=== PATIENT | female | born 1940 | race Caucasian/White ===

== ENCOUNTER 2016-09-23 04:37 | Emergency (ER) | payer MEDICARE, BC ==
[2016-09-23 05:46] LABS: BASOPHILS 0.4 % (0.0-2.0); EOSINOPHILS 2.8 % (0-7); HEMATOCRIT 38.1 % (36.0-48.0); HEMOGLOBIN 13.3 g/dL (12-16); IMMATURE GRANULOCYTES 0.3 % (0-5); LYMPHOCYTES 28.5 % (15-50); MCHC 34.9 g/dL (31.0-37.0); MCV 88.8 fL (80.0-100.0); MONOCYTES 12.4 % (2-11); NEUTROPHILS 55.6 % (40-80); PLATELET COUNT 258 10x3/uL (130-400); RBC 4.29 10x6/uL (4.00-5.40); RDW 14.2 % (11.5-14.5); WBC 7.2 10x3/uL (4.8-10.8)
[2016-09-23 06:24] LABS: ALBUMIN 3.9 g/dL (3.4-5.0); ALKALINE PHOSPHATASE 59 U/L (46-116); ALT (SGPT) 15 U/L (10-68); BILIRUBIN - TOTAL 0.33 mg/dL (0.2-1.3); CALC OSMOLALITY 283 mosm/kg (275-300); CARBON DIOXIDE 26.9 mmol/L (21.0-32.0); CHLORIDE - SERUM 104 mmol/L (98-107); CREATININE - SERUM 0.9 mg/dL (0.6-1.3); GLUCOSE 105 mg/dL (74-106); POTASSIUM - SERUM 3.5 mmol/L (3.5-5.1); PROTEIN - SERUM 7.2 g/dL (6.4-8.2); SODIUM 141 mmol/L (136-145); UREA NITROGEN 20 mg/dL (7-18); eGFR NON AFRICAN AMERICAN 64 mL/min (90-120)
[2016-09-23 06:35] LABS: CHOL - HDL RATIO 3.3 ratio (2.3-4.1); CHOLESTEROL, TOTAL 206 mg/dL (0-200); CKMB 1.2 U/L (0.0-3.6); CREATINE KINASE 64 UL (21-215); HDL CHOLESTEROL 63 mg/dL (32-96); LDL CHOLESTEROL 95 mg/dL (0-100); LDL-HDL RATIO 1.5 ratio (1.5-3.5); TRIGLYCERIDE 240 mg/dL (30-200)
[2016-09-23 06:36] LABS: TROPONIN-I < 0.017 ng/mL (0.000-0.060)
[2016-09-24] MEDS ORDERED: OMNICEF300 MG PO (15:40)
[2016-10-01] MEDS ORDERED: MACROBID100 MG PO (15:40)
== END 2016-09-23 09:30 | disposition home or self-care (01) ==
LOC: D.ER 04:37
PROVIDERS: Surgery
DX: J20.9 Acute bronchitis, unspecified (principal); I10 Essential (primary) hypertension; F17.200 Nicotine dependence, unspecified, uncomplicated

== ENCOUNTER 2016-10-02 15:12 | Inpatient (IN) | payer MEDICARE, BC ==
[~2016-10-02] VITALS: Ht 152.4 cm; Wt 49.7 kg
[~2016-10-02 15:12] MED LIST: MACROBID100 MG PO; OMNICEF300 MG PO
--- NOTE | 2016-10-02 15:34 | NUR ---
RECEIVED PATIENT TO ROOM 2105 VIA WHEELCHAIR FROM ADMISSIONS. PATIENT IS A DIRECT ADMIT FROM 'S OFFICE WITH COMPLAINTS OF BLADDER INFECTION. ALERT/ORIENTED. SITTING TO SIDE OF BED AT THIS TIME. NO IV ACCESS. RESP EVEN AND UNLABORED. NO DISTRESS.
[2016-10-02] MEDS ORDERED: COZAAR50 MG PO (15:38)
[2016-10-02] MEDS ORDERED: ACETAMINOPHEN500 M1 PO (15:42)
--- NOTE | 2016-10-02 15:59 | NUR ---
22 GAUGE IV PLACED X 1 STICK TO LEFT FOREARM BY THIS ACUTE CARE ASSISTANT. GOOD BLOOD RETURN, EASY FLUSH. ABLE TO PULL NEEDED BLOOD FROM IV FOR PHELBOTOMIST FOR STAT LABS. TAPED, DATED AND SECURED. PATIENT TOLERATED IV PLACEMENT WELL. NO DISTRESS. XRAY AT BEDSIDE FOR STAT RADIOGRAPHS AT THIS TIME.
[2016-10-02 16:11] LABS: BASOPHILS 0.2 % (0.0-2.0); EOSINOPHILS 1.7 % (0-7); HEMOGLOBIN 12.1 g/dL (12-16); IMMATURE GRANULOCYTES 0.2 % (0-5); LYMPHOCYTES 20.8 % (15-50); MCH 29.4 pg (26.0-34.0); MCHC 32.7 g/dL (31.0-37.0); MEAN PLATELET VOLUME 10.5 fL (7.4-10.4); MONOCYTES 11.9 % (2-11); NEUTROPHILS 65.2 % (40-80); PLATELET COUNT 244 10x3/uL (130-400); RBC 4.11 10x6/uL (4.00-5.40); RDW 13.5 % (11.5-14.5)
[2016-10-02 16:18] VITALS: BP 155/81
[2016-10-02 16:39] LABS: ANION GAP 17.1 mmol/L (8-16); BILIRUBIN - TOTAL 0.23 mg/dL (0.2-1.3); CALCIUM 9.2 mg/dL (8.5-10.1); CARBON DIOXIDE 24.8 mmol/L (21.0-32.0); CREATININE - SERUM 1.1 mg/dL (0.6-1.3); POTASSIUM - SERUM 3.9 mmol/L (3.5-5.1); PROTEIN - SERUM 6.8 g/dL (6.4-8.2)
[2016-10-02 17:54] VITALS: BP 155/81; BMI 20.5
[2016-10-02 20:00] VITALS: BP 139/85
--- NOTE | 2016-10-02 21:40 | NUR ---
PT AWAKE, ALERT, ORIENTED, REQUESTING PAIN MEDICATION FOR BACK PAIN AND LOWER ABDOMINAL PAIN. CURRENTLY THERE ARE NO MEDICATION ORDERS. WILL CONTACT COMPUTER ARCHITECT PHYSICIAN. WILL ADMINISTER IV ROCEPHIN ORDERED. CONTINUE TO MONITOR CLOSELY.
--- NOTE | 2016-10-02 21:54 | NUR ---
DR. ERVIN INDIVIDUAL SMALL GROUP INSTRUCTOR DID AUTHORIZE NEWS MEDS AND LAB ORDERS. ORDERS ENTERED. CONTINUE TO MONITOR PT CLOSELY.
--- NOTE | 2016-10-02 22:18 | NUR ---
ORDERED ROCEPHIN HELD R/T LISTED ALLERGY TO CEFDINIR. PT CANNOT RECALL THAT SHE IS ALLERGIC TO CEFDINIR OR WHAT HAPPENS WHEN SHE TAKES IT. CONTINUE TO MONITOR CLOSELY.
--- NOTE | 2016-10-02 23:57 | NUR ---
AWAITING BLOOD CULTURES TO BE DRAWN, THEN WILL START THE FLAGYL. PT DID TAKE PRN TYLENOL AND PYRIDIUM. CONTINUE TO MONITOR CLOSELY.
[2016-10-03] VITALS: BP 166/80
--- NOTE | 2016-10-03 02:56 | NUR ---
BLOOD CULTURES BEING DRAWN NOW. WILL ADMINISTER FIRST DOSE OF FLAGYL.
[2016-10-03 03:15] LABS: BASOPHILS 0.2 % (0.0-2.0); EOSINOPHILS 2.1 % (0-7); HEMATOCRIT 35.1 % (36.0-48.0); HEMOGLOBIN 11.5 g/dL (12-16); IMMATURE GRANULOCYTES 0.3 % (0-5); LYMPHOCYTES 25.1 % (15-50); MCH 29.2 pg (26.0-34.0); MCHC 32.8 g/dL (31.0-37.0); MCV 89.1 fL (80.0-100.0); MEAN PLATELET VOLUME 10.3 fL (7.4-10.4); MONOCYTES 12.5 % (2-11); NEUTROPHILS 59.8 % (40-80); PLATELET COUNT 241 10x3/uL (130-400); RBC 3.94 10x6/uL (4.00-5.40); RDW 13.1 % (11.5-14.5); WBC 10.1 10x3/uL (4.8-10.8)
[2016-10-03 03:24] LABS: ALBUMIN 3.4 g/dL (3.4-5.0); ANION GAP 12.5 mmol/L (8-16); BILIRUBIN - TOTAL 0.34 mg/dL (0.2-1.3); CALCIUM 8.3 mg/dL (8.5-10.1); CREATININE - SERUM 1.1 mg/dL (0.6-1.3); POTASSIUM - SERUM 3.5 mmol/L (3.5-5.1); PROTEIN - SERUM 6.2 g/dL (6.4-8.2)
[2016-10-03 04:00] VITALS: BP 140/80
--- NOTE | 2016-10-03 07:00 | NUR ---
PT WAS RECEIVED AT THE BEGINNING OF THIS SHIFT AWAKE AND ORIENTED X 3. NO VOICED COMPLAINTS OF THIS TIME. VITAL SIGNS WNL. LEFT FOREARM WITH NS GOING PER PUMP AT 75ML'S/HR. PT IS UP AD YVETTE. WILL BE MONITORING PT THROUGHOUT THIS SHIFT AND ASSISTING PRN WITH ADL'S. CALL LIGHT IS IN REACH.
[2016-10-03 08:00] VITALS: BP 136/81
--- NOTE | 2016-10-03 11:52 | NUR ---
RATIONALE FOR SCD'S EXPLAINED. REFUSED SCD'S
[2016-10-03 12:00] VITALS: BP 115/76
[2016-10-03 12:01] LABS: APPEARANCE CLEAR (CLEAR); COLOR YELLOW (YELLOW)
[2016-10-03 12:03] LABS: BACTERIA FEW /hpf (NONE SEEN); RED CELLS - URINE 0-5 /hpf (0-5)
[2016-10-03 13:54] VITALS: Ht 152.4 cm; Wt 49.7 kg
--- NOTE | 2016-10-03 15:27 | NUR ---
THIS PT. GOT TYLENOL 650MG AT 2PM FOR ABDOMINAL PAIN AND THEN AN ORDER FOR HYDROCODONE 5MG WAS GIVEN AT 2:30PM PER DR. CARRERA FOR A ONE TIME DOSE. MONITORING HER FOR ANY ADVERSE REACTIONS. CALL LIGHT IS IN REACH.
[2016-10-03 17:21] VITALS: BP 119/68
[2016-10-03 20:00] VITALS: BP 145/71
--- NOTE | 2016-10-03 23:24 | NUR ---
PT VOMITED, GIVEN PRN ZOFRAN. PT DENIES ANY OTHER NEEDS. PT IS IN NO ACUTE DISTRESS. CONTINUE TO MONITOR CLOSELY.
[2016-10-04] VITALS: BP 103/57
--- NOTE | 2016-10-04 00:49 | NUR ---
CHICKEN NOODLE SOUP (4 OZ) GIVEN TO PT AFTER ADMINISTERING HUMALOG 20 UNITS PER S/S.
[2016-10-04 04:00] VITALS: BP 148/66
--- NOTE | 2016-10-04 07:31 | NUR ---
RESTS IN BED. DR. CARRERA AT BS. IV PATENT. CALL LIGHT IN REACH. WILL CONT. PLAN OF CARE.
[2016-10-04 08:13] VITALS: BP 137/67
--- NOTE | 2016-10-04 08:55 | NUR ---
FULL BAG OF FLUIDS HANGING AND RUNNING - WILL HOLD BAG THAT IS DUE OF NS
[2016-10-04 11:38] VITALS: BP 133/70
[2016-10-04 15:20] VITALS: BP 142/69
--- NOTE | 2016-10-04 17:10 | NUR ---
PT AND DR. CARRERA NOTIFIED OF POSITIVE C-DIFF
--- NOTE | 2016-10-04 19:50 | NUR ---
RESUMED CARE OF PT, [id number], PT IS CONTACT ISO-C-DIFF, FAMILY IN ROOM, DENIES ANY NEEDS, BED IS LOW, SRX2, CALL LIGHT IN REACH, WILL CONTINUE TO MONITOR
[2016-10-04 20:00] VITALS: BP 149/68
[2016-10-05] VITALS: BP 122/63
[2016-10-05 04:00] VITALS: BP 124/63
--- NOTE | 2016-10-05 05:16 | NUR ---
DIRECTOR ADULT AT BEDSIDE TO OBTAIN VITALS, CALL LIGHT IN REACH. WILL CONTINUE WITH PLAN OF CARE.
[2016-10-05 08:31] VITALS: BP 140/67
[2016-10-05 09:05] LABS: BASOPHILS 0.4 % (0.0-2.0); EOSINOPHILS 2.1 % (0-7); HEMATOCRIT 32.9 % (36.0-48.0); HEMOGLOBIN 10.7 g/dL (12-16); IMMATURE GRANULOCYTES 0.1 % (0-5); LYMPHOCYTES 24.4 % (15-50); MCH 29.2 pg (26.0-34.0); MCHC 32.5 g/dL (31.0-37.0); MCV 89.6 fL (80.0-100.0); MEAN PLATELET VOLUME 10.4 fL (7.4-10.4); MONOCYTES 11.4 % (2-11); NEUTROPHILS 61.6 % (40-80); PLATELET COUNT 222 10x3/uL (130-400); RBC 3.67 10x6/uL (4.00-5.40); RDW 13.2 % (11.5-14.5); WBC 7.7 10x3/uL (4.8-10.8)
[2016-10-05 09:32] LABS: CREATININE - SERUM 0.8 mg/dL (0.6-1.3)
[2016-10-05 09:33] LABS: ALBUMIN 3.4 g/dL (3.4-5.0); BILIRUBIN - TOTAL 0.33 mg/dL (0.2-1.3); CALCIUM 7.9 mg/dL (8.5-10.1); CARBON DIOXIDE 25.3 mmol/L (21.0-32.0); PROTEIN - SERUM 6.4 g/dL (6.4-8.2)
[2016-10-05 09:52] LABS: ANION GAP 12.7 mmol/L (8-16)
[2016-10-05 12:47] VITALS: BP 146/67
--- NOTE | 2016-10-05 14:33 | NUR ---
RESTING QUIETLY IN BED. WILL CONTINUE TO MONITOR.
--- NOTE | 2016-10-05 15:56 | NUR ---
Patient Name: HASMUKH MERINO Admission Status: Elective Accout number: [id number] Admission Date: 10-02-2016 : 1940 Admission Diagnosis:URINARY TRACT INFECTION, SITE NOT SPECIFIED Attending: MICHELLE Current LOS: 3 Anticipated DC Date: Planned Disposition: Home Primary Insurance: MEDICARE A & B Discharge Planning Comments: * Is the patient Alert and Oriented? Yes 0 * How many steps to enter\exit or inside your home? 1 0 * PCP DR. CARRERA 0 * Pharmacy [facility] 0 * Preadmission Environment Home with Family 0 * ADLs Independent 0 * Equipment Nebulizer 0 * Other Equipment HEALTHCARE MEDICAL - MEDICAL EQUIPMENT PROVIDER 0 * List name and contact numbers for known caregivers / representatives who currently or will assist patient after discharge: MAHESH MERINO, DAUGHTER, 0 * Community resources currently utilized None 0 * Please name any agencies selected above. NONE 0 * Additional services required to return to the preadmission environment? No 0 * Can the patient safely return to the preadmission environment? Yes 0 * Has this patient been hospitalized within the prior 30 days at any hospital? No 0 CM MET WITH PT IN ROOM TO DISCUSS DISCHARGE PLANNING AND NEEDS. PT REPORTS LIVING AT HOME INDEPENDENTLY WITH HER SPOUSE AND ADULT DAUGHTER. PT HAS A NEBULIZER PROVIDED BY [facility] (SHE IS NOT FOR SURE). PT HAS NO OUTSIDE SERVICES ASSISTING IN THE HOME. CM DISCUSSED AVAILABILITY OF HOME HEALTH, REHAB SERVICES AND MEDICAL EQUIPMENT. PT DENIES DISCHARGE NEEDS, REPORTS HER DAUGHTER WILL PICK HER UP FOR DISCHARGE HOME. IMPORTANT MESSAGE FROM MEDICARE PROVIDED AND EXPLAINED. PT PLANS TO DISCHARGE HOME WITH FAMILY, NO ANTICIPATED DISCHARGE NEEDS. CM TO FOLLOW AND ASSIST NEEDED. Branch Banker: Harish Garcia
[2016-10-05 18:07] VITALS: BP 137/77
--- NOTE | 2016-10-05 19:44 | NUR ---
RECEIVED REPORT FROM DAY NURSE, PT WANTING TO GO TO ER TO SEE , DAY NURSE SAID OK,
--- NOTE | 2016-10-05 21:10 | NUR ---
PT STILL DOWN IN ER WITH , CALL TO CHECK ON HER
[2016-10-06] VITALS: BP 102/51
--- NOTE | 2016-10-06 01:23 | NUR ---
SLEEPING, SRX2, BED IS LOW, CALL LIGHT IN REACH
[2016-10-06 05:07] VITALS: BP 104/66
[2016-10-06 05:30] LABS: BASOPHILS 0.3 % (0.0-2.0); EOSINOPHILS 3.5 % (0-7); HEMOGLOBIN 10.3 g/dL (12-16); IMMATURE GRANULOCYTES 0.1 % (0-5); LYMPHOCYTES 24.3 % (15-50); MCH 28.7 pg (26.0-34.0); MCHC 32.2 g/dL (31.0-37.0); MCV 89.1 fL (80.0-100.0); MEAN PLATELET VOLUME 10.7 fL (7.4-10.4); MONOCYTES 13.6 % (2-11); NEUTROPHILS 58.2 % (40-80); PLATELET COUNT 211 10x3/uL (130-400); RBC 3.59 10x6/uL (4.00-5.40); WBC 7.4 10x3/uL (4.8-10.8)
[2016-10-06 05:46] LABS: ALKALINE PHOSPHATASE 46 U/L (46-116); CARBON DIOXIDE 23.7 mmol/L (21.0-32.0); CHLORIDE - SERUM 109 mmol/L (98-107); CREATININE - SERUM 0.7 mg/dL (0.6-1.3); POTASSIUM - SERUM 3.2 mmol/L (3.5-5.1); PROTEIN - SERUM 5.9 g/dL (6.4-8.2); SODIUM 142 mmol/L (136-145); UREA NITROGEN 8 mg/dL (7-18); eGFR NON AFRICAN AMERICAN 86 mL/min (90-120)
[2016-10-06 05:48] LABS: ALT (SGPT) 28 U/L (10-68); CALC OSMOLALITY 280 mosm/kg (275-300); GLUCOSE 95 mg/dL (74-106)
--- NOTE | 2016-10-06 07:44 | NUR ---
PT IN BED RESTING WITH EYES CLOSED. REMAINS ON CONTACT ISOLATION. IV TO LEFT FA WITH NS AT 75CC/HR. NO DISTRESS NOTED. SR UP X 2. C/L IN REACH. WILL MONITOR.
[2016-10-06 08:08] VITALS: BP 131/98
--- NOTE | 2016-10-06 10:22 | NUR ---
IV PATENT. NO NEEDS VOICED. CALL LIGHT IN REACH. WILL MONITOR.
[2016-10-06 11:57] VITALS: BP 145/72
--- NOTE | 2016-10-06 13:50 | NUR ---
PT FAMILY MEMBER CAME TO DESK FOUND ANTS IN ROOM ALL ALONG WINDOW SEAL. CALLED SUPERVISIOR AND TOLD HER. GOING TO MOVE PT TO ROOM 2108 SINCE UNSURE WHEN THEY WILL COME TO SPRAY FOR THE ANTS.
--- NOTE | 2016-10-06 14:10 | NUR ---
PT CALLED HER IV WAS LEAKING. LOOKED AT IV AND WAS INFILTRATED. SO REMOVED IV, CATH INTACT. ATTEMPTED TO PUT IV IN RIGHT FOREARM BUT WAS UNSUCCESSFUL. TOLD HER WILL SEND SOMEONE ELSE IN.
[2016-10-06 16:07] VITALS: BP 124/60
--- NOTE | 2016-10-06 19:35 | NUR ---
ASSESSMENT COMPLETE. A&O, DENIES PAIN OR NEEDS, BED LOW, CL IN REACH.
[2016-10-06 21:16] VITALS: BP 127/55
--- NOTE | 2016-10-06 23:10 | NUR ---
RESTING ON LEFT SIDE, RESPERATIONS EVEN, NO S/S DISTRESS NOTED.
[2016-10-07 00:30] VITALS: BP 140/67
[2016-10-07 04:30] VITALS: BP 149/73
[2016-10-07 05:05] LABS: BASOPHILS 0.2 % (0.0-2.0); EOSINOPHILS 3.2 % (0-7); HEMATOCRIT 34.2 % (36.0-48.0); HEMOGLOBIN 11.1 g/dL (12-16); IMMATURE GRANULOCYTES 0.1 % (0-5); LYMPHOCYTES 26.7 % (15-50); MCH 28.9 pg (26.0-34.0); MCHC 32.5 g/dL (31.0-37.0); MCV 89.1 fL (80.0-100.0); MEAN PLATELET VOLUME 10.3 fL (7.4-10.4); MONOCYTES 13.2 % (2-11); NEUTROPHILS 56.6 % (40-80); PLATELET COUNT 227 10x3/uL (130-400); RBC 3.84 10x6/uL (4.00-5.40); RDW 13.2 % (11.5-14.5); WBC 8.8 10x3/uL (4.8-10.8)
[2016-10-07 05:26] LABS: CALC OSMOLALITY 284 mosm/kg (275-300); CALCIUM 8.3 mg/dL (8.5-10.1); CARBON DIOXIDE 23.2 mmol/L (21.0-32.0); CHLORIDE - SERUM 110 mmol/L (98-107); CREATININE - SERUM 0.7 mg/dL (0.6-1.3); GLUCOSE 98 mg/dL (74-106); POTASSIUM - SERUM 3.4 mmol/L (3.5-5.1); SODIUM 144 mmol/L (136-145); UREA NITROGEN 6 mg/dL (7-18); eGFR NON AFRICAN AMERICAN 86 mL/min (90-120)
[2016-10-07 07:54] VITALS: BP 158/81
[2016-10-07 12:22] VITALS: BP 173/79
[2016-10-07] MEDS ORDERED: PROBIOTIC250 MG PO (12:25)
[2016-10-07] MEDS ORDERED: FLAGYL500 MG PO (12:25)
--- NOTE | 2016-10-10 08:02 | DS ---
PATIENT:HASMUKH MERINO :36 MEDICAL RECORD: [id number] DISCHARGE SUMMARY ADMISSION DATE: 10/02/16 DISCHARGE DATE: 10/07/16 DATE OF ADMISSION: 10/02/2016. DATE OF DISCHARGE: 10/07/2016. ADMISSION DIAGNOSES: Diarrhea, dehydration, acute urinary tract infection, possible sepsis. DISCHARGE DIAGNOSES: Clostridium difficile colitis, dehydration and urinary tract infection. CONSULTS: GI. HOSPITAL COURSE: The patient had an uneventful hospital course, was hydrated. His stools was positive for C. diff, was started on IV Flagyl, tolerating regular diet now, has been cleared for discharge by cardiology. He is feeling much better. He is discharged home in significantly improved condition. VITAL SIGNS ON DISCHARGE: Temperature 99, blood pressure 158/81, heart rate 70, respirations 18, O2 sats 95% on room air. He will follow up with Dr. Thakkar in the next 7-10 days. Labs reviewed and no significant abnormalities on discharge. See chart for further details. TRANSINT:[id number] Voice Confirmation ID: [id number] DOCUMENT ID: [id number] JHOAN ERVIN DO at 0802 CC: [id number] DICTATION DATE: 10/07/16 1230 OPENER TENDER: 10/07/16 1244 DIS IN 10/07/[id number] [place] [address]
== END 2016-10-07 16:31 | disposition home or self-care (01) | DRG 372 ==
LOC: D.M2 15:12
PROVIDERS: Internal Medicine Gastroenterology; ADMIT Family Medicine
DX: A04.7 Enterocolitis due to Clostridium difficile (principal); N39.0 Urinary tract infection, site not specified; E86.0 Dehydration; K58.9 Irritable bowel syndrome, unspecified

== ENCOUNTER → 2016-11-30 15:27 | Outpatient (CLI) | payer MEDICARE, BC ==
[2016-10-03 13:54] VITALS: BMI 20.5
[~2016-11-30 15:27] MED LIST changes: +ACETAMINOPHEN500 M1 PO; +COZAAR50 MG PO; +FLAGYL500 MG PO; +PROBIOTIC250 MG PO
[2016-11-30 15:57] LABS: BASOPHILS 0.2 % (0-2); HEMATOCRIT 42.2 % (36.0-48.0); HEMOGLOBIN 13.8 g/dL (12-16); IMMATURE GRANULOCYTES 0.2 % (0-5); MCH 29.9 pg (26.0-34.0); MCHC 32.7 g/dL (31.0-37.0); MCV 91.3 fL (80.0-100.0); MEAN PLATELET VOLUME 9.9 fL (7.4-10.4); MONOCYTES 10.2 % (2-11); NEUTROPHILS 58.4 % (40-80); RBC 4.62 10x6/uL (4.00-5.40); RDW 13.2 % (11.5-14.5); WBC 9.4 10x3/uL (4.8-10.8)
[2016-11-30 16:27] LABS: ALBUMIN 4.1 g/dL (3.4-5.0); ANION GAP 14.1 mmol/L (8-16); BILIRUBIN - TOTAL 0.24 mg/dL (0.2-1.3); CALCIUM 9.3 mg/dL (8.5-10.1); CREATININE - SERUM 0.8 mg/dL (0.6-1.3); POTASSIUM - SERUM 4.1 mmol/L (3.5-5.1); PROTEIN - SERUM 7.3 g/dL (6.4-8.2)
[2016-11-30 16:29] LABS: PLATELET COUNT 319 10x3/uL (130-400)
== END | disposition home or self-care (01) ==
LOC: D.LAB 11-28 11:30 → D.RAD 11-28 11:45 → D.LAB 15:27
PROVIDERS: Internal Medicine Gastroenterology
DX: K59.00 Constipation, unspecified (principal); R63.4 Abnormal weight loss

== ENCOUNTER → 2017-02-15 15:46 | Outpatient (CLI) | payer MEDICARE, BC ==
[2016-10-03 13:54] VITALS: BMI 20.5
== END | disposition home or self-care (01) ==
LOC: D.RAD 15:46
DX: J44.9 Chronic obstructive pulmonary disease, unspecified (principal)

== ENCOUNTER 2017-12-06 16:37 | Emergency (ER) | payer MEDICARE, BC ==
[2016-10-03 13:54] VITALS: BMI 20.5
[2017-12-06 17:55] LABS: BASOPHILS 0.2 % (0-2); EOSINOPHILS 1.7 % (0-7); HEMATOCRIT 43.4 % (36.0-48.0); IMMATURE GRANULOCYTES 0.3 % (0-5); MCHC 34.6 g/dL (31.0-37.0); MCV 86.8 fL (80.0-100.0); MEAN PLATELET VOLUME 9.9 fL (7.4-10.4); MONOCYTES 10.7 % (2-11); NEUTROPHILS 61.1 % (40-80); PLATELET COUNT 286 10x3/uL (130-400); RDW 13.1 % (11.5-14.5); WBC 12.4 10x3/uL (4.8-10.8)
[2017-12-06 18:14] LABS: ALBUMIN 3.6 g/dL (3.4-5.0); ALKALINE PHOSPHATASE 62 U/L (46-116); ALT (SGPT) 15 U/L (10-68); BILIRUBIN - TOTAL 0.31 mg/dL (0.2-1.3); CALC OSMOLALITY 269 mosm/kg (275-300); CARBON DIOXIDE 23.4 mmol/L (21.0-32.0); CHLORIDE - SERUM 100 mmol/L (98-107); CREATININE - SERUM 0.7 mg/dL (0.6-1.3); GLUCOSE 99 mg/dL (74-106); POTASSIUM - SERUM 3.8 mmol/L (3.5-5.1); SODIUM 135 mmol/L (136-145); UREA NITROGEN 13 mg/dL (7-18); eGFR NON AFRICAN AMERICAN 85 mL/min (90-120)
[2017-12-06 18:43] LABS: INR 0.89 (0.85-1.17); PROTIME 11.7 SECONDS (11.6-15.0)
[2017-12-06 18:47] LABS: MAGNESIUM - SERUM 1.9 mg/dL (1.8-2.4); TROPONIN-I 0.02 ng/mL (0.000-0.060)
[2017-12-06 19:21] LABS: APPEARANCE CLEAR (CLEAR); BILIRUBIN NEGATIVE (NEGATIVE); COLOR YELLOW (YELLOW); GLUCOSE NEGATIVE (NEGATIVE); KETONE NEGATIVE (NEGATIVE); NITRITE NEGATIVE (NEGATIVE); PROTEIN NEGATIVE (NEGATIVE); UROBILINOGEN NORMAL (NORMAL)
[2017-12-06 19:22] LABS: WHITE CELLS - URINE 0-5 /hpf (0-5)
[2017-12-06 19:23] LABS: BACTERIA FEW /hpf (NONE SEEN); EPITHELIAL CELLS 0-5 /hpf (0-5); RED CELLS - URINE RARE /hpf (0-5)
== END 2017-12-06 23:07 | disposition home or self-care (01) ==
LOC: D.ER 16:37
PROVIDERS: Emergency Medicine; Nurse Practitioner Family
DX: R55 Syncope and collapse (principal); R10.9 Unspecified abdominal pain; R19.7 Diarrhea, unspecified; Z87.19 Personal history of other diseases of the digestive system; I10 Essential (primary) hypertension

== ENCOUNTER → 2017-12-17 08:07 | Outpatient (CLI) | payer MEDICARE, BC ==
[2016-10-03 13:54] VITALS: BMI 20.5
== END | disposition home or self-care (01) ==
LOC: D.MRI 08:07
DX: R10.31 Right lower quadrant pain (principal)

== ENCOUNTER → 2018-01-10 08:02 | Outpatient (CLI) | payer MEDICARE, BC ==
[2016-10-03 13:54] VITALS: BMI 20.5
[~2018-01-10 08:02] MED LIST changes: +ADVAIR 250/501 DISK INH; +ELIQUIS2.5 MG PO; +PROAIR HFA8.5 GM INH; +ULTRAM50 MG PO; +ZANAFLEX4 MG PO
== END | disposition home or self-care (01) ==
LOC: D.SP 08:02
DX: M25.552 Pain in left hip (principal); M25.551 Pain in right hip; M16.0 Bilateral primary osteoarthritis of hip; Z01.812 Encounter for preprocedural laboratory examination

== ENCOUNTER → 2018-02-17 18:04 | Outpatient (CLI) | payer MEDICARE, BC ==
[2016-10-03 13:54] VITALS: BMI 20.5
== END | disposition home or self-care (01) ==
LOC: D.LABREF 18:04
DX: M25.551 Pain in right hip (principal); Z11.8 Encounter for screening for other infectious and parasitic diseases

== ENCOUNTER 2018-03-05 10:00 | Inpatient (IN) | payer MEDICARE, BC ==
[~2018-03-05] VITALS: Ht 154.9 cm; Wt 49.9 kg
--- NOTE | ~2018-03-05 | OP ---
PATIENT NAME: HASMUKH MERINO MEDICAL RECORD: [id number] :36 LOCATION:D.MS [id number] ADMISSION DATE:03/11/18 SURGEON: ALETA MANCILLA DO DATE OF OPERATION: 03/11/2018 PROCEDURE PERFORMED: Right total hip arthroplasty. PREOPERATIVE DIAGNOSIS: Right end-stage hip osteoarthritis. POSTOPERATIVE DIAGNOSIS: Right end-stage hip osteoarthritis. INDICATIONS: Ms. Merino is an 78-year-old female who presented to my office a couple months ago. She complained of bilateral hip pain with the right greater than the left. She has been dealing with this for some time and it has been affecting her activities of daily living. She was tired of it and lack of motion. X-rays were done showing severe osteoarthritis of both hips, so the right was worse than the left. She did try injections under fluoroscopy, which did not help. She failed all of the conservative management. She was aware of the risks and benefits of the procedure, the total hip, including fracture, bleeding, need for further surgery and infection. When she is aware of this, she consented to procedure of right total hip. She does have antibiotic sensitivity and was given vancomycin. Due to her recurrent C. diff, she said vancomycin is the only one she can take. SURGEON: Aleta Mancilla DO DESCRIPTION OF PROCEDURE: The patient received a block in the preoperative area by anesthesia, was taken to the operative suite, laid in supine position, sedated and then intubated, given a gram of vancomycin preoperatively. The patient was then prepared and put on the Deshler table. The right hip was prepped and draped in sterile fashion. Timeout was performed. Everyone was in agreeance with the correct side, site, patient and procedure. Once this was done, the procedure then began with an incision over the tensor fascia eleazar. Careful dissection was made down to the fascia and then this was incised and taken superiorly. The muscle of the tensor fascia eleazar was taken inferiorly, opening the interval to the rectus. The rectus fascia was then opened and the rectus was taken medially and the tensor fascia eleazar laterally. Careful dissection was then made down to the ascending branch of the lateral femoral circumflex, arteries of these were tied off and the Aquamantys bipolar device was used on them to ensure no bleeding. Then, the capsule was exposed. A capsulotomy was performed. Hohmanns were put inside the capsule. A neck cut was then done and the head was removed. We then reamed the acetabulum up to a 48 cup and the cup was put into place. This was done under fluoroscopy. Then, the femur was exposed, first the canal finder, then the cookie cutter and then the 4 broach with the smallest broach, and this fit due to her small size. Then trialled, seemed to be a little long, recut the neck and then put the 4 stem back down and I used a -6, and this cut close to the appropriate length compared to the other side. Once this was done, the actual implant was put in, a 4 stem with a 28 head and a 38 mm bearing size dual mobility head was put on. Hip was reduced. The wound was then thoroughly irrigated. Surgicel beads were placed into the capsule. Capsule was closed and then a tensor fascia eleazar fascia was closed with #1 Vicryl, first with [id number] and in a running fashion. Skin was closed with inverted interrupted stitches, 2-0 Vicryl, 4-0 Monocryl ran on the skin and a Prineo Dermabond grid was put on the skin for closure. A Telfa and Tegaderm were then placed on the hip. OPERATIVE REPORT [id number] HASMUKH MERINO BLOOD LOSS: Approximately 150 mL. COMPLICATIONS: None. TRANSINT:[id number] Voice Confirmation ID: [id number] DOCUMENT ID: [id number] ALETA MANCILLA DO at 1337 CC: [id number] DICTATION DATE: 03/11/18939 ASSOCIATE PROFESSOR OF FORESTRY: 03/11/18 1033 [facility] IN [facility] [address] [id number]
[~2018-03-05 10:00] MED LIST changes: -ADVAIR 250/501 DISK INH; -ELIQUIS2.5 MG PO; -PROAIR HFA8.5 GM INH; -ULTRAM50 MG PO; -ZANAFLEX4 MG PO
[2018-03-05] MEDS ORDERED: ADVAIR 250/501 DISK INH (10:55)
[2018-03-05] MEDS ORDERED: PROAIR HFA8.5 GM INH (10:56)
[2018-03-05] MEDS ORDERED: ZANAFLEX4 MG PO (10:56)
[2018-03-05 11:54] LABS: ANION GAP 11.6 mmol/L (8-16); CALCIUM 8.7 mg/dL (8.5-10.1); CARBON DIOXIDE 28.6 mmol/L (21.0-32.0); CREATININE - SERUM 0.8 mg/dL (0.6-1.3); POTASSIUM - SERUM 4.2 mmol/L (3.5-5.1)
[2018-03-05 12:06] LABS: BASOPHILS 0.3 % (0-2); EOSINOPHILS 1.6 % (0-7); HEMATOCRIT 40.3 % (36.0-48.0); HEMOGLOBIN 13.6 g/dL (12-16); IMMATURE GRANULOCYTES 0.2 % (0-5); LYMPHOCYTES 25.1 % (15-50); MCH 29.5 pg (26.0-34.0); MCHC 33.7 g/dL (31.0-37.0); MCV 87.4 fL (80.0-100.0); MEAN PLATELET VOLUME 9.7 fL (7.4-10.4); MONOCYTES 8.8 % (2-11); PLATELET COUNT 289 10x3/uL (130-400); RBC 4.61 10x6/uL (4.00-5.40); RDW 15.4 % (11.5-14.5)
[2018-03-05 12:14] LABS: APPEARANCE CLEAR (CLEAR); BILIRUBIN NEGATIVE (NEGATIVE); COLOR YELLOW (YELLOW); GLUCOSE NEGATIVE (NEGATIVE); KETONE NEGATIVE (NEGATIVE); NITRITE NEGATIVE (NEGATIVE); PROTEIN NEGATIVE (NEGATIVE); UROBILINOGEN NORMAL (NORMAL)
[2018-03-05 12:38] LABS: APTT 27.5 SECONDS (22.8-39.4); INR 0.85 (0.85-1.17); PROTIME 11.2 SECONDS (11.6-15.0)
[2018-03-11] VITALS (10 sets, daily range): BP systolic 93–142; BP diastolic 50–72; BMI 14.9; BMI 15.3
[2018-03-12 04:35] LABS: HEMATOCRIT 30.8 % (36.0-48.0); MCH 29.1 pg (26.0-34.0); MCHC 32.5 g/dL (31.0-37.0); MCV 89.5 fL (80.0-100.0); MEAN PLATELET VOLUME 9.8 fL (7.4-10.4); RBC 3.44 10x6/uL (4.00-5.40); RDW 14.8 % (11.5-14.5); WBC 11.4 10x3/uL (4.8-10.8)
[2018-03-12 04:51] VITALS: BP 103/64
[2018-03-12 08:50] VITALS: BP 108/41
[2018-03-12 12:36] VITALS: Ht 154.9 cm; Wt 49.9 kg
[2018-03-12 12:51] VITALS: BP 122/56
[2018-03-12 17:36] VITALS: BP 124/61
[2018-03-12 20:00] VITALS: BP 138/63
[2018-03-13 04:33] LABS: BASOPHILS 0.1 % (0-2); EOSINOPHILS 1.6 % (0-7); HEMATOCRIT 29.9 % (36.0-48.0); HEMOGLOBIN 9.9 g/dL (12-16); IMMATURE GRANULOCYTES 0.2 % (0-5); LYMPHOCYTES 17.9 % (15-50); MCH 29.5 pg (26.0-34.0); MCHC 33.1 g/dL (31.0-37.0); MONOCYTES 10.2 % (2-11); PLATELET COUNT 246 10x3/uL (130-400); RBC 3.36 10x6/uL (4.00-5.40); RDW 14.8 % (11.5-14.5); WBC 9.8 10x3/uL (4.8-10.8)
[2018-03-13 04:49] LABS: ALBUMIN 2.7 g/dL (3.4-5.0); ALKALINE PHOSPHATASE 50 U/L (46-116); ALT (SGPT) 23 U/L (10-68); BILIRUBIN - TOTAL 0.62 mg/dL (0.2-1.3); CALC OSMOLALITY 271 mosm/kg (275-300); CALCIUM 7.6 mg/dL (8.5-10.1); CARBON DIOXIDE 24.9 mmol/L (21.0-32.0); CHLORIDE - SERUM 104 mmol/L (98-107); CREATININE - SERUM 0.7 mg/dL (0.6-1.3); GLUCOSE 103 mg/dL (74-106); POTASSIUM - SERUM 3.8 mmol/L (3.5-5.1); PROTEIN - SERUM 5.7 g/dL (6.4-8.2); SODIUM 137 mmol/L (136-145); UREA NITROGEN 6 mg/dL (7-18); eGFR NON AFRICAN AMERICAN 85 mL/min (90-120)
[2018-03-13 04:55] VITALS: BP 131/74
[2018-03-13 09:03] VITALS: BP 145/71
[2018-03-13] MEDS ORDERED: ELIQUIS2.5 MG PO (12:32)
[2018-03-13] MEDS ORDERED: ULTRAM50 MG PO (12:32)
[2018-03-13 13:16] VITALS: BP 125/68
== END 2018-03-13 14:42 | disposition home or self-care (01) | DRG 470 ==
LOC: D.SDCHOLD 03-11 05:25 → D.MS 03-11 10:37 → D.SDCHOLD 03-11 11:50 → D.MS 03-13 14:42
PROVIDERS: Anesthesiology; Family Medicine; Orthopaedic Surgery
PROC: 0SR90JZ Replacement of Right Hip Joint with Synthetic Substitute, Open Approach (ICD-10-PCS; principal; 2018-03-11 07:30)
DX: M16.11 Unilateral primary osteoarthritis, right hip (principal); I10 Essential (primary) hypertension; R05 Cough; F17.210 Nicotine dependence, cigarettes, uncomplicated

== ENCOUNTER 2018-04-04 15:27 | Emergency (ER) | payer MEDICARE, BC ==
[~2018-04-04] VITALS: Ht 154.9 cm; Wt 48.2 kg
[~2018-04-04 15:27] MED LIST changes: +ADVAIR 250/501 DISK INH; +ELIQUIS2.5 MG PO; +PROAIR HFA8.5 GM INH; +ULTRAM50 MG PO; +ZANAFLEX4 MG PO
[2018-04-04 15:34] VITALS: Ht 154.9 cm; Wt 48.2 kg
[2018-04-04] MEDS ORDERED: TYLENOL W/CODEI1 TAB PO (15:37)
[2018-04-04 18:09] VITALS: BP 146/68
== END 2018-04-04 18:10 | disposition home or self-care (01) ==
LOC: D.ER 15:27
DX: M25.551 Pain in right hip (principal); W18.30XA Fall on same level, unspecified, initial encounter; Y93.89 Activity, other specified; Y92.019 Unspecified place in single-family (private) house as the place of occurrence of the external cause; I10 Essential (primary) hypertension; F17.200 Nicotine dependence, unspecified, uncomplicated

== ENCOUNTER → 2018-06-19 15:56 | Outpatient (CLI) | payer MEDICARE, BC ==
[~2018-06-19 15:56] MED LIST changes: +TYLENOL W/CODEI1 TAB PO
== END | disposition home or self-care (01) ==
LOC: D.MRI 15:56
DX: M54.16 Radiculopathy, lumbar region (principal)

== ENCOUNTER → 2018-10-13 09:04 | Outpatient (CLI) | payer MEDICARE, BC | END | disposition home or self-care (01) | LOC: D.CT 09:04 | PROVIDERS: ATTEND Family Medicine | DX: R91.8 Other nonspecific abnormal finding of lung field (principal) ==

== ENCOUNTER 2019-01-28 13:02 | Inpatient (IN) | payer MEDICARE, BC ==
[~2019-01-28] VITALS: Ht 154.9 cm; Wt 49.9 kg
[2019-01-28 13:12] VITALS: BP 135/78
[2019-01-28] MEDS ORDERED: ACETAMINOPHEN500 M1 PO (13:15)
[2019-01-28 14:00] VITALS: BP 130/69
[2019-01-28 14:14] LABS: HEMATOCRIT 37.7 % (36.0-48.0); HEMOGLOBIN 12.8 g/dL (12-16); LYMPHOCYTES 14.2 % (15-50); MCH 29.4 pg (26.0-34.0); MCV 86.7 fL (80.0-100.0); MEAN PLATELET VOLUME 9.7 fL (7.4-10.4); NEUTROPHILS 72.5 % (40-80); PLATELET COUNT 224 10x3/uL (130-400); RBC 4.35 10x6/uL (4.00-5.40); RDW 13.5 % (11.5-14.5)
[2019-01-28 14:33] LABS: ALBUMIN 3.9 g/dL (3.4-5.0); ALKALINE PHOSPHATASE 74 U/L (46-116); ALT (SGPT) 13 U/L (10-68); BILIRUBIN - TOTAL 0.84 mg/dL (0.2-1.3); CALC OSMOLALITY 273 mosm/kg (275-300); CARBON DIOXIDE 25.6 mmol/L (21.0-32.0); CHLORIDE - SERUM 101 mmol/L (98-107); CREATINE KINASE 78 UL (21-215); CREATININE - SERUM 0.8 mg/dL (0.6-1.3); GLUCOSE 124 mg/dL (74-106); LIPASE 233 U/L (73-393); MAGNESIUM - SERUM 1.8 mg/dL (1.8-2.4); POTASSIUM - SERUM 3.6 mmol/L (3.5-5.1); PRO BNP 648 pg/mL (0-450); PROTEIN - SERUM 7.1 g/dL (6.4-8.2); SODIUM 137 mmol/L (136-145); THYROID STIMULATING HORMONE 1.44 uIU/mL (0.36-3.74); UREA NITROGEN 10 mg/dL (7-18); eGFR NON AFRICAN AMERICAN 73 mL/min (90-120)
[2019-01-28 14:58] LABS: APPEARANCE CLEAR (CLEAR); BILIRUBIN NEGATIVE (NEGATIVE); COLOR YELLOW (YELLOW); GLUCOSE NEGATIVE (NEGATIVE); KETONE NEGATIVE (NEGATIVE); NITRITE NEGATIVE (NEGATIVE); PROTEIN NEGATIVE (NEGATIVE); UROBILINOGEN NORMAL (NORMAL)
[2019-01-28 15:00] VITALS: BP 142/76
[2019-01-28 15:03] LABS: TROPONIN-I < 0.017 ng/mL (0.000-0.060)
[2019-01-28] MEDS ORDERED: ALBUTEROL2.5 MG/3 M INH (16:04)
[2019-01-28 17:23] VITALS: BMI 20.8
[2019-01-28 17:42] LABS: CKMB 0.5 U/L (0.0-3.6); CREATINE KINASE 86 UL (21-215); TROPONIN-I 0.051 ng/mL (0.000-0.060)
[2019-01-28 20:00] VITALS: BP 122/71
[2019-01-28 23:39] LABS: CKMB 1.2 U/L (0.0-3.6); CREATINE KINASE 4 UL (21-215); TROPONIN-I < 0.017 ng/mL (0.000-0.060)
[2019-01-29] VITALS: BP 112/76
[2019-01-29 04:00] VITALS: BP 107/73
[2019-01-29 05:27] LABS: BASOPHILS 0.1 % (0-2); EOSINOPHILS 0 % (0-7); HEMATOCRIT 38.3 % (36.0-48.0); HEMOGLOBIN 12.8 g/dL (12-16); IMMATURE GRANULOCYTES 0.2 % (0-5); LYMPHOCYTES 12.8 % (15-50); MCHC 33.4 g/dL (31.0-37.0); MCV 86.8 fL (80.0-100.0); MEAN PLATELET VOLUME 10.7 fL (7.4-10.4); MONOCYTES 3.8 % (2-11); NEUTROPHILS 83.1 % (40-80); PLATELET COUNT 234 10x3/uL (130-400); RBC 4.41 10x6/uL (4.00-5.40); RDW 13.4 % (11.5-14.5); WBC 10.7 10x3/uL (4.8-10.8)
[2019-01-29 05:47] LABS: ALBUMIN 3.6 g/dL (3.4-5.0); ALKALINE PHOSPHATASE 68 U/L (46-116); ALT (SGPT) 13 U/L (10-68); BILIRUBIN - TOTAL 0.77 mg/dL (0.2-1.3); CALCIUM 8.6 mg/dL (8.5-10.1); CARBON DIOXIDE 22.7 mmol/L (21.0-32.0); CHLORIDE - SERUM 101 mmol/L (98-107); CKMB 1.5 U/L (0.0-3.6); CREATINE KINASE 116 UL (21-215); GLUCOSE 151 mg/dL (74-106); PROTEIN - SERUM 6.8 g/dL (6.4-8.2); SODIUM 137 mmol/L (136-145); TROPONIN-I < 0.017 ng/mL (0.000-0.060)
[2019-01-29 05:52] LABS: CALC OSMOLALITY 279 mosm/kg (275-300); CREATININE - SERUM 1.1 mg/dL (0.6-1.3); POTASSIUM - SERUM 4.7 mmol/L (3.5-5.1); UREA NITROGEN 21 mg/dL (7-18); eGFR NON AFRICAN AMERICAN 51 mL/min (90-120)
[2019-01-29 11:40] VITALS: BP 105/47
[2019-01-29 14:18] VITALS: Ht 154.9 cm; Wt 49.9 kg
[2019-01-29 15:24] VITALS: BP 116/55
[2019-01-29 20:00] VITALS: BP 114/49
[2019-01-30 04:00] VITALS: BP 106/62
[2019-01-30 05:36] LABS: BASOPHILS 0 % (0-2); EOSINOPHILS 0 % (0-7); HEMATOCRIT 34.1 % (36.0-48.0); HEMOGLOBIN 11.4 g/dL (12-16); IMMATURE GRANULOCYTES 0.3 % (0-5); LYMPHOCYTES 6.1 % (15-50); MCH 28.6 pg (26.0-34.0); MCHC 33.4 g/dL (31.0-37.0); MCV 85.5 fL (80.0-100.0); MEAN PLATELET VOLUME 10.5 fL (7.4-10.4); MONOCYTES 7.7 % (2-11); NEUTROPHILS 85.9 % (40-80); PLATELET COUNT 241 10x3/uL (130-400); RBC 3.99 10x6/uL (4.00-5.40); RDW 13.5 % (11.5-14.5)
[2019-01-30 05:40] LABS: WBC 15.7 10x3/uL (4.8-10.8)
[2019-01-30 05:53] LABS: ALBUMIN 3.1 g/dL (3.4-5.0); ANION GAP 13.2 mmol/L (8-16); BILIRUBIN - TOTAL 0.43 mg/dL (0.2-1.3); CALCIUM 8.4 mg/dL (8.5-10.1); CARBON DIOXIDE 25.4 mmol/L (21.0-32.0); CREATININE - SERUM 0.9 mg/dL (0.6-1.3); POTASSIUM - SERUM 4.6 mmol/L (3.5-5.1); PROTEIN - SERUM 6.4 g/dL (6.4-8.2)
[2019-01-30 12:30] VITALS: BP 130/70
--- NOTE | 2019-01-30 13:03 | MORECARE ---
CASE MANAGEMENT DISCHARGE SUMMARY PATIENT: HASMUKH MERINO AMANDA UNIT: [id number] ADM DATE: 01/28/19 AGE: 78 : 38 SEX: F ROOM/BED: D.7002 AUTHOR: NATALIE VYAS PHYSICIAN: REFERRING PHYSICIAN: LUCIO CRAMER MD DATE OF SERVICE: 01/30/19 Discharge Plan Patient Name: HASMUKH MERINO Facility: [facility]:[place] : 1940 Planned Disposition: Home Anticipated Discharge Date: 01/31/19 Discharge Date: Expected LOS: 3 Initial Reviewer: [email or web address] Initial Review Date: 01/30/2019 Generated: 01/30/19 2:03 pm DCPIA - Discharge Planning Initial Assessment Updated by [email or web address]: Harish Garcia on 01/30/19 1:02 pm * Is the patient Alert and Oriented? Yes * How many steps to enter\exit or inside your home? * PCP DR. CARRERA * Pharmacy [facility] * Preadmission Environment Home with Family * ADLs Independent * Equipment Bedside Commode Nebulizer Rolling Walker * Other Equipment NONE * List name and contact numbers for known caregivers / representatives who currently or will assist patient after discharge: MAHESH MERINO, DTR, * Verbal permission to speak to the caregivers and representatives has been obtained from the patient. N/A * Community resources currently utilized None * Please name any agencies selected above. NONE * Additional services required to return to the preadmission environment? No * Can the patient safely return to the preadmission environment? Yes * Has this patient been hospitalized within the prior 30 days at any hospital? No Coverage Notice Reviewer: [email or web address] - Harish Garcia Notice Issued Date-Time: 01/30/2019 12:50 Notice Type: IM Discharge Notice Notice Delivered To: Patient Relationship to Patient: Dwarf Tree Grower Name: Delivery Method: HAND - Hand Delivered Fanny Days: Prior Verbal Notification: Recipient Understood Notice: Yes Recipient Signature: Yes Med Rec Note Co-signed by Attending: Coverage Notice Comment: Patient Name: HASMUKH MERINO Page [phone] at 1303 All edits/amendments must be made on the electronic document DICTATION DATE: 01/30/19 1303 PHYSICIAN RELATIONS MANAGER: CALEB 01/30/19 1303 RPT#: [id number] DC DATE: STATUS: ADM IN [facility] [address] [place] [address] END OF REPORT
--- NOTE | 2019-01-30 13:11 | MORECARE ---
CASE MANAGEMENT DISCHARGE SUMMARY PATIENT: HASMUKH MERINO UNIT: [id number] ADM DATE: 01/28/19 AGE: 78 : 38 SEX: F ROOM/BED: D.9694 AUTHOR: LILLIAM,DOC PHYSICIAN: REFERRING PHYSICIAN: LUCIO CRAMER MD DATE OF SERVICE: 01/30/19 Discharge Plan Patient Name: HASMUKH MERINO Facility: [facility]:[place] : 1940 Planned Disposition: Home Anticipated Discharge Date: 01/31/19 Discharge Date: Expected LOS: 3 Initial Reviewer: [email or web address] Initial Review Date: 01/30/2019 Generated: 01/30/19 2:11 pm Comments DCP- Discharge Planning Updated by [email or web address]: Harish Garcia on 01/30/19 12:[address] Patient Name: HASMUKH MERINO Admission Status: ER Accout number: [id number] Admission Date: 01-28-2019 : 1940 Admission Diagnosis: Attending: LUCIO KINSEY Current LOS: 2 Anticipated DC Date: 01-31-2019 Planned Disposition: Home Primary Insurance: MEDICARE A & B Discharge Planning Comments: CM RECEIVED ORDER FOR DISCHARGE PLANNING. CM MET WITH PT IN ROOM TO DISCUSS DISCHARGE PLANNING AND NEEDS. PT REPORTS LIVING AT HOME INDEPENDENTLY WITH HER DAUGHTER. PT HAS ROLLING WALKER, BEDSIDE COMMODE AND NEBULIZER WITH NO MEDICAL EQUIPMENT PROVIDER PREFERENCE. PT HAS NO OUTSIDE SERVICES ASSISTING IN THE HOME. CM DISCUSSED AVAILABILITY OF HOME HEALTH, REHAB SERVICES AND MEDICAL EQUIPMENT. PT DENIES DISCHARGE NEEDS, REPORTS HER DAUGHTER WILL PICK HER UP FOR DISCHARGE HOME. IMPORTANT MESSAGE FROM MEDICARE PROVIDED AND EXPLAINED. CM REVIEWED THERAPY NOTES IN ROOM WITH PT, ENCOURAGED PT TO CONSIDER REHAB OR AT LEAST HOME HEALTH. PT DECLINED BOTH AND REPORTS SHE WANTS TO GET HOME AND SEE HOW SHE DOES FIRST. CM EXPLAINED HOW TO CONTACT PRIMARY DOCTOR FROM HOME TO REQUEST HOME HEALTH, PT REPORTS UNDERSTANDING. PT'S FRIEND WHO ARRIVED ENCOURAGED PT TO REQUEST A WALKER WITH 4 WHEELS AND BRAKES. PT REPORTS HAVING ROLLING WALKER AT HOME BUT IT DOES NOT HAVE A SEAT AND DOES NOT WANT CM TO ORDER A NEW WALKER FOR HER. PT STATES THAT SHE WILL DISCUSS THIS WITH HER PRIMARY CARE DOCTOR AFTER SHE GETS HOME IF SHE FEELS THAT HER CURRENT WALKER IS NOT ENOUGH. CM LEFT PT WITH CM CONTACT INFORMATION. PT PLANS TO DISCHARGE HOME WITH FAMILY, DENIES DISCHARGE NEEDS. DAUGHTER TO TRANSPORT HOME AT DISCHARGE. CM TO FOLLOW AND ASSIST IF NEEDED. Oxygen Furnace Operator: Harish Garcia DCPIA - Discharge Planning Initial Assessment Updated by [email or web address]: Harish Garcia on 01/30/19 1:02 pm * Is the patient Alert and Oriented? Yes * How many steps to enter\exit or inside your home? * PCP DR. CARRERA * Pharmacy [facility] * Preadmission Environment Home with Family * ADLs Independent * Equipment Bedside Commode Nebulizer Rolling Walker * Other Equipment NONE * List name and contact numbers for known caregivers / representatives who currently or will assist patient after discharge: MAHESH MERINO, DTR, * Verbal permission to speak to the caregivers and representatives has been obtained from the patient. N/A * Community resources currently utilized None * Please name any agencies selected above. NONE * Additional services required to return to the preadmission environment? No * Can the patient safely return to the preadmission environment? Yes * Has this patient been hospitalized within the prior 30 days at any hospital? No Coverage Notice Reviewer: [id number] - Harish Garcia Notice Issued Date-Time: 01/30/2019 12:50 Notice Type: IM Discharge Notice Notice Delivered To: Patient Relationship to Patient: Criminology Teacher Name: Delivery Method: HAND - Hand Delivered Fanny Days: Prior Verbal Notification: Recipient Understood Notice: Yes Recipient Signature: Yes Med Rec Note Co-signed by Attending: Coverage Notice Comment: Last DP export: 01/30/19 12:03 p Patient Name: HASMUKH MERINO Page [phone] at 1311 All edits/amendments must be made on the electronic document DICTATION DATE: 01/30/19 1310 DIRECT SUPPORT STAFF: CALEB 01/30/19 1310 RPT#: [id number] ID DATE: STATUS: ADM IN [facility] [address] [place] [address] END OF REPORT
[2019-01-30 16:38] VITALS: BP 134/57
[2019-01-31 04:00] VITALS: BP 115/57
[2019-01-31 05:15] LABS: BASOPHILS 0 % (0-2); EOSINOPHILS 0 % (0-7); HEMATOCRIT 32.3 % (36.0-48.0); HEMOGLOBIN 10.7 g/dL (12-16); IMMATURE GRANULOCYTES 0.2 % (0-5); LYMPHOCYTES 10.2 % (15-50); MCH 28.5 pg (26.0-34.0); MCHC 33.1 g/dL (31.0-37.0); MCV 86.1 fL (80.0-100.0); MEAN PLATELET VOLUME 10.6 fL (7.4-10.4); MONOCYTES 12.8 % (2-11); NEUTROPHILS 76.8 % (40-80); PLATELET COUNT 221 10x3/uL (130-400); RBC 3.75 10x6/uL (4.00-5.40); RDW 13.7 % (11.5-14.5)
[2019-01-31 05:25] LABS: ANION GAP 12.3 mmol/L (8-16); BILIRUBIN - TOTAL 0.34 mg/dL (0.2-1.3); CALCIUM 8.1 mg/dL (8.5-10.1); CARBON DIOXIDE 25.9 mmol/L (21.0-32.0); CREATININE - SERUM 0.8 mg/dL (0.6-1.3); POTASSIUM - SERUM 4.2 mmol/L (3.5-5.1); PROTEIN - SERUM 6.1 g/dL (6.4-8.2)
[2019-01-31 08:34] VITALS: BP 139/77
[2019-01-31 12:59] VITALS: BP 126/63
[2019-01-31 17:53] VITALS: BP 150/77
[2019-01-31 20:00] VITALS: BP 139/76
[2019-02-01] VITALS: BP 114/89
[2019-02-01 04:00] VITALS: BP 144/76
[2019-02-01 06:10] LABS: BASOPHILS 0 % (0-2); EOSINOPHILS 0 % (0-7); HEMATOCRIT 35.4 % (36.0-48.0); HEMOGLOBIN 11.7 g/dL (12-16); IMMATURE GRANULOCYTES 0.4 % (0-5); LYMPHOCYTES 8.6 % (15-50); MCH 28.6 pg (26.0-34.0); MCHC 33.1 g/dL (31.0-37.0); MCV 86.6 fL (80.0-100.0); MEAN PLATELET VOLUME 10.2 fL (7.4-10.4); MONOCYTES 7.9 % (2-11); NEUTROPHILS 83.1 % (40-80); PLATELET COUNT 231 10x3/uL (130-400); RBC 4.09 10x6/uL (4.00-5.40); RDW 13.7 % (11.5-14.5); WBC 13.2 10x3/uL (4.8-10.8)
[2019-02-01 06:31] LABS: ALBUMIN 3.2 g/dL (3.4-5.0); ANION GAP 13.9 mmol/L (8-16); BILIRUBIN - TOTAL 0.38 mg/dL (0.2-1.3); CALCIUM 8.3 mg/dL (8.5-10.1); CARBON DIOXIDE 23.3 mmol/L (21.0-32.0); CREATININE - SERUM 0.8 mg/dL (0.6-1.3); POTASSIUM - SERUM 4.2 mmol/L (3.5-5.1); PROTEIN - SERUM 6.5 g/dL (6.4-8.2)
[2019-02-01 08:30] VITALS: BP 154/80
[2019-02-01 11:42] VITALS: BP 154/75
[2019-02-01] MEDS ORDERED: PREDNISONE10 MG PO (17:05)
--- NOTE | 2019-02-02 10:11 | MORECARE ---
CASE MANAGEMENT DISCHARGE SUMMARY PATIENT: HASMUKH MERION UNIT: [id number] ADM DATE: 01/28/19 AGE: 78 : 38 SEX: F ROOM/BED: D.8590 AUTHOR: LILLIAM,DOC PHYSICIAN: REFERRING PHYSICIAN: LUCIO CRAMER MD DATE OF SERVICE: 02/02/19 Discharge Plan Patient Name: HASMUKH MERINO Facility: [facility]:[place] : 1940 Planned Disposition: Home Anticipated Discharge Date: 02/01/19 Discharge Date: 02/01/2019 Expected LOS: 4 Initial Reviewer: [email or web address] Initial Review Date: 01/30/2019 Generated: 02/02/19 11:11 am DCP- Discharge Planning Updated by [email or web address]: Harish Garcia on 01/30/19 12:[address] Patient Name: HASMUKH MERINO Admission Status: ER Accout number: [id number] Admission Date: 01-28-2019 : 1940 Admission Diagnosis: Attending: LUCIO KINSEY Current LOS: 2 Anticipated DC Date: 01-31-2019 Planned Disposition: Home Primary Insurance: MEDICARE A & B Discharge Planning Comments: CM RECEIVED ORDER FOR DISCHARGE PLANNING. CM MET WITH PT IN ROOM TO DISCUSS DISCHARGE PLANNING AND NEEDS. PT REPORTS LIVING AT HOME INDEPENDENTLY WITH HER DAUGHTER. PT HAS ROLLING WALKER, BEDSIDE COMMODE AND NEBULIZER WITH NO MEDICAL EQUIPMENT PROVIDER PREFERENCE. PT HAS NO OUTSIDE SERVICES ASSISTING IN THE HOME. CM DISCUSSED AVAILABILITY OF HOME HEALTH, REHAB SERVICES AND MEDICAL EQUIPMENT. PT DENIES DISCHARGE NEEDS, REPORTS HER DAUGHTER WILL PICK HER UP FOR DISCHARGE HOME. IMPORTANT MESSAGE FROM MEDICARE PROVIDED AND EXPLAINED. CM REVIEWED THERAPY NOTES IN ROOM WITH PT, ENCOURAGED PT TO CONSIDER REHAB OR AT LEAST HOME HEALTH. PT DECLINED BOTH AND REPORTS SHE WANTS TO GET HOME AND SEE HOW SHE DOES FIRST. CM EXPLAINED HOW TO CONTACT PRIMARY DOCTOR FROM HOME TO REQUEST HOME HEALTH, PT REPORTS UNDERSTANDING. PT'S FRIEND WHO ARRIVED ENCOURAGED PT TO REQUEST A WALKER WITH 4 WHEELS AND BRAKES. PT REPORTS HAVING ROLLING WALKER AT HOME BUT IT DOES NOT HAVE A SEAT AND DOES NOT WANT CM TO ORDER A NEW WALKER FOR HER. PT STATES THAT SHE WILL DISCUSS THIS WITH HER PRIMARY CARE DOCTOR AFTER SHE GETS HOME IF SHE FEELS THAT HER CURRENT WALKER IS NOT ENOUGH. CM LEFT PT WITH CM CONTACT INFORMATION. PT PLANS TO DISCHARGE HOME WITH FAMILY, DENIES DISCHARGE NEEDS. DAUGHTER TO TRANSPORT HOME AT DISCHARGE. CM TO FOLLOW AND ASSIST IF NEEDED. Auto Care Center Manager: Harish Garcia DCPIA - Discharge Planning Initial Assessment Updated by [email or web address]: Harish Garcia on 01/30/19 1:02 pm * Is the patient Alert and Oriented? Yes * How many steps to enter\exit or inside your home? * PCP DR. CARRERA * Pharmacy [facility] * Preadmission Environment Home with Family * ADLs Independent * Equipment Bedside Commode Nebulizer Rolling Walker * Other Equipment NONE * List name and contact numbers for known caregivers / representatives who currently or will assist patient after discharge: MAHESH MERINO, DTR, * Verbal permission to speak to the caregivers and representatives has been obtained from the patient. N/A * Community resources currently utilized None * Please name any agencies selected above. NONE * Additional services required to return to the preadmission environment? No * Can the patient safely return to the preadmission environment? Yes * Has this patient been hospitalized within the prior 30 days at any hospital? No Coverage Notice Reviewer: [email or web address] - Harish Garcia Notice Issued Date-Time: 01/30/2019 12:50 Notice Type: IM Discharge Notice Notice Delivered To: Patient Relationship to Patient: International Relations Teacher Name: Delivery Method: HAND - Hand Delivered Fanny Days: Prior Verbal Notification: Recipient Understood Notice: Yes Recipient Signature: Yes Med Rec Note Co-signed by Attending: Coverage Notice Comment: Last DP export: 01/30/19 12:11 p Patient Name: HASMUKH MERINO Page [phone] at 1011 All edits/amendments must be made on the electronic document DICTATION DATE: 02/02/19 1011 SURGICAL SUPPLY ASSISTANT: CALEB 02/02/19 1011 RPT#: [id number] DC DATE:02/01/19 STATUS: DIS IN [facility] [address] [place] [address] END OF REPORT
== END 2019-02-01 18:20 | disposition home or self-care (01) | DRG 193 ==
LOC: D.ER 13:02 → D.M2 15:32
PROVIDERS: Emergency Medicine; Family Medicine; ADMIT Family Medicine; ATTEND Family Medicine
DX: J18.9 Pneumonia, unspecified organism (principal); J96.01 Acute respiratory failure with hypoxia; E43 Unspecified severe protein-calorie malnutrition; F17.213 Nicotine dependence, cigarettes, with withdrawal; J44.1 Chronic obstructive pulmonary disease with (acute) exacerbation; J44.0 Chronic obstructive pulmonary disease with (acute) lower respiratory infection; Z68.24 Body mass index [BMI] 24.0-24.9, adult; J30.9 Allergic rhinitis, unspecified; M79.672 Pain in left foot; M54.9 Dorsalgia, unspecified; G89.29 Other chronic pain

== ENCOUNTER 2019-04-03 15:09 | Inpatient (IN) | payer MEDICARE, BC ==
[~2019-04-03] VITALS: Ht 154.9 cm; Wt 50.3 kg
[~2019-04-03 15:09] MED LIST changes: +ALBUTEROL2.5 MG/3 M INH; +PREDNISONE10 MG PO
[2019-04-03 16:17] LABS: BASOPHILS 0.2 % (0-2); EOSINOPHILS 2.8 % (0-7); HEMATOCRIT 37.1 % (36.0-48.0); HEMOGLOBIN 12.2 g/dL (12-16); IMMATURE GRANULOCYTES 0.2 % (0-5); MCH 28.8 pg (26.0-34.0); MCHC 32.9 g/dL (31.0-37.0); MCV 87.7 fL (80.0-100.0); MEAN PLATELET VOLUME 9.5 fL (7.4-10.4); MONOCYTES 12.8 % (2-11); RBC 4.23 10x6/uL (4.00-5.40); RDW 13.5 % (11.5-14.5); WBC 9.4 10x3/uL (4.8-10.8)
[2019-04-03 16:18] LABS: PLATELET COUNT 289 10x3/uL (130-400)
[2019-04-03 16:32] LABS: ALBUMIN 3.7 g/dL (3.4-5.0); ANION GAP 14.3 mmol/L (8-16); BILIRUBIN - TOTAL 0.23 mg/dL (0.2-1.3); CALCIUM 8.7 mg/dL (8.5-10.1); CARBON DIOXIDE 27.7 mmol/L (21.0-32.0); CREATININE - SERUM 0.9 mg/dL (0.6-1.3); PROTEIN - SERUM 6.3 g/dL (6.4-8.2)
[2019-04-03] MEDS ORDERED: FLORAJEN3 CAPS460 MG PO (16:35)
[2019-04-03] MEDS ORDERED: PHENERGAN25 M1 PO (16:38)
[2019-04-03] MEDS ORDERED: ZOFRAN4 MG PO (16:40)
[2019-04-03 17:42] VITALS: BP 121/81; BMI 21.0
--- NOTE | 2019-04-03 19:45 | NUR ---
A&O X 4. AMBULATORY IN ROOM. REPORTS MILD NAUSEA AND ABDOMINAL DISCOMFORT. LAST BM WAS AROUND NOON, LOOSE WATERY STOOL. PT INFORMED OF NEED FOR STOOL AND URINE SPECIMEN. ALLERGY BAND APPLIED. DENIES FURTHER NEEDS AT THIS TIME.
[2019-04-03 20:00] VITALS: BP 112/45
[2019-04-04 02:49] LABS: APPEARANCE CLEAR (CLEAR); BILIRUBIN NEGATIVE (NEGATIVE); COLOR YELLOW (YELLOW); GLUCOSE NEGATIVE (NEGATIVE); KETONE NEGATIVE (NEGATIVE); NITRITE NEGATIVE (NEGATIVE); PROTEIN NEGATIVE (NEGATIVE); SPECIFIC GRAVITY 1.005 (1.005-1.020); UROBILINOGEN NORMAL (NORMAL)
[2019-04-04 04:00] VITALS: BP 118/46
[2019-04-04 06:06] LABS: BASOPHILS 0.2 % (0-2); EOSINOPHILS 3.6 % (0-7); HEMATOCRIT 34.6 % (36.0-48.0); HEMOGLOBIN 11.1 g/dL (12-16); IMMATURE GRANULOCYTES 0.1 % (0-5); LYMPHOCYTES 36.3 % (15-50); MCH 28.4 pg (26.0-34.0); MCHC 32.1 g/dL (31.0-37.0); MCV 88.5 fL (80.0-100.0); MEAN PLATELET VOLUME 10.1 fL (7.4-10.4); MONOCYTES 13.8 % (2-11); PLATELET COUNT 272 10x3/uL (130-400); RBC 3.91 10x6/uL (4.00-5.40); RDW 13.7 % (11.5-14.5)
[2019-04-04 06:40] LABS: ALKALINE PHOSPHATASE 56 U/L (46-116); ALT (SGPT) 11 U/L (10-68); BILIRUBIN - TOTAL 0.34 mg/dL (0.2-1.3); CALC OSMOLALITY 279 mosm/kg (275-300); CARBON DIOXIDE 23.5 mmol/L (21.0-32.0); CHLORIDE - SERUM 108 mmol/L (98-107); CREATININE - SERUM 0.7 mg/dL (0.6-1.3); GLUCOSE 89 mg/dL (74-106); POTASSIUM - SERUM 3.9 mmol/L (3.5-5.1); PROTEIN - SERUM 5.7 g/dL (6.4-8.2); SODIUM 141 mmol/L (136-145); eGFR NON AFRICAN AMERICAN 85 mL/min (90-120)
[2019-04-04 06:42] LABS: UREA NITROGEN 12 mg/dL (7-18)
[2019-04-04 09:47] VITALS: BP 147/63
--- NOTE | 2019-04-04 10:46 | NUR ---
REC'D PT LYING IN BED RESP EVEN AND UNLABORED LUNG SOUNDS CLEAR DIMINISHED THROUGHOUT SKIN PINK WARM AND DRY WITH GOOD TURGOR NO EDEMA AT THIS TIME. IV TO LEFT WRIST PATENT AND INTACT AT THIS TIME. BED AT LOWEST SETTING WITH BRAKES BABY FORMULA MIXER LIGHT WITHIN REACH WILL CONTINUE TO MONITOR
[2019-04-04 13:30] VITALS: Ht 154.9 cm; Wt 50.3 kg
[2019-04-04 13:39] VITALS: BP 126/60
[2019-04-04] MEDS ORDERED: FLAGYL500 MG PO (16:23)
--- NOTE | 2019-04-04 16:30 | NUR ---
SPOKE WITH PT RE REFERRAL TO TOBACCO QUITLINE. SHE DECLINES, STATES "I'VE GOT PATCHES".
--- NOTE | 2019-04-04 16:37 | NUR ---
CALLED DR ROJAS TO CONFIRM RX FOR FLAGYL. HE REPORTS HE INSTRUCTED PT TAKE IF SHE DEVELOPS DIARRHEA.
[2019-04-04 17:00] VITALS: BP 132/57
--- NOTE | 2019-04-04 17:31 | NUR ---
IV DISCONTINUED WITH CATHETER INTACT AT THIS TIME. PT GIVEN DISCHARGE INSTRUCTIONS AND ORDERS AT THIS TIME, VERBALIZES UNDERSTANDING AT THIS TIME. PT TAKEN VIA WHEELCHAIR VIA PRIVATE VEHILCE AT THIS TIME.
--- NOTE | 2019-04-04 18:23 | MORECARE ---
CASE MANAGEMENT DISCHARGE SUMMARY PATIENT: HASMUKH MERINO AMANDA UNIT: [id number] ADM DATE: 04/03/19 AGE: 79 : 38 SEX: F ROOM/BED: D.2231 AUTHOR: NATALIE VYAS PHYSICIAN: REFERRING PHYSICIAN: DL CARRERA DO DATE OF SERVICE: 04/04/19 Discharge Plan Patient Name: HASMUKH MERINO [facility] [facility] 1940 Planned Disposition: Home Anticipated Discharge Date: 04/04/19 Discharge Date: 04/04/2019 Expected LOS: 1 Initial Reviewer: [email or web address] Initial Review Date: 04/03/2019 Generated: 04/04/19 7:22 pm DCPIA - Discharge Planning Initial Assessment Updated by [email or web address]: Talia Murrieta on 04/04/19 6:21 pm * Is the patient Alert and Oriented? Yes * How many steps to enter\exit or inside your home? 1W/ RAIL * PCP DR CARRERA * Pharmacy [facility] * Preadmission Environment Home with Family * ADLs Independent * Equipment Bedside Commode Nebulizer Rolling Walker * Other Equipment DENIES ANY ADDITIONAL DME * List name and contact numbers for known caregivers / representatives who currently or will assist patient after discharge: MAHESH MERINO- R- [phone] * Verbal permission to speak to the caregivers and representatives has been obtained from the patient. Yes * Community resources currently utilized None * Please name any agencies selected above. N/A * Additional services required to return to the preadmission environment? No * Can the patient safely return to the preadmission environment? Yes * Has this patient been hospitalized within the prior 30 days at any hospital? No Patient Name: HASMUKH MERINO Page [id number] at 1823 All edits/amendments must be made on the electronic document DICTATION DATE: 04/04/191821 PAINTER AND BODY WORK: CALEB 04/04/191821 RPT#: [id number] DC DATE:04/04/19 STATUS: DIS IN [facility] [address] [place] [address] END OF REPORT
--- NOTE | 2019-04-04 18:37 | MORECARE ---
CASE MANAGEMENT DISCHARGE SUMMARY PATIENT: HASMUKH MERINO UNIT: [id number] ADM DATE: 04/03/19 AGE: 79 : 38 SEX: F ROOM/BED: D.2231 AUTHOR: LILLIAM,DOC PHYSICIAN: REFERRING PHYSICIAN: DL CARRERA DO DATE OF SERVICE: 04/04/19 Discharge Plan Patient Name: HASMUKH MERINO Facility: [facility]:[place] : 1940 Planned Disposition: Home Anticipated Discharge Date: 04/04/19 Discharge Date: 04/04/2019 Expected LOS: 1 Initial Reviewer: [email or web address] Initial Review Date: 04/03/2019 Generated: 04/04/19 7:36 pm Comments DCP- Discharge Planning Updated by [email or web address]: Talia Murrieta on 04/04/19 5:[address] LATE ENTRY 1600 CM MET WITH THE PATIENT AT THE BEDSIDE. NELIDA , HER SISTER, WAS AT THE BEDSIDE. CM EXPLINED MY ROLE. REQUEST PERMISSION TO SPEAK W/ HER REGARDING DISCHARGE. CM ASK PERMISSION REGARDING HER SISTER'S PRESENCE. SHE GAVE PERMISSION FOR SISTER TO STAY DURING ASSESSMENT. SHE WILL BE RETURNING TO HER HOME. SHE HAS ONE STEP W/ RAILING TO ENTER HER HOME. PATIENT IS INDEPENDNT IN HER CARE. HER DAUGHTER, MAHESH, LIVES W/ HER. SHE STATES SHE DOES NOT REQUIRE ANY ASSISTANCE HER DAUGHTER HELPS IF NEEDED. HER BROTHER IN LAW IS PROVIDING TRANSPORTATION FOR HER AND HIS , NELIDA. SHE HAS NO ADDITIONAL DME NEEDS. SHE HAS A NEBULIZER, BSC AND WHEELED WALKER. SHE DOES NOT DESIRE ANY OUTSIDE SERVICES. PCP - DR CARRERA PHARMACY- DR CARRERA SHE STATES DR ROJAS EXPLAINED "EVERYTHING VERY WELL". SHE HAD NO QUESTIONS. DENIED ANY NEEDS OR CONCERNS. SHE WAS ANXIOUS TO GET DRESSED. DCPIA - Discharge Planning Initial Assessment Updated by [email or web address]: Talia Murrieta on 04/04/19 6:21 pm * Is the patient Alert and Oriented? Yes * How many steps to enter\\exit or inside your home? 1W/ RAIL * PCP DR CARRERA * Pharmacy [facility] * Preadmission Environment Home with Family * ADLs Independent * Equipment Bedside Commode Nebulizer Rolling Walker * Other Equipment DENIES ANY ADDITIONAL DME * List name and contact numbers for known caregivers / representatives who currently or will assist patient after discharge: MAHESH MERINO- DTR- [phone] * Verbal permission to speak to the caregivers and representatives has been obtained from the patient. Yes * Community resources currently utilized None * Please name any agencies selected above. N/A * Additional services required to return to the preadmission environment? No * Can the patient safely return to the preadmission environment? Yes * Has this patient been hospitalized within the prior 30 days at any hospital? No Last DP export: 04/04/19 5:23 p Patient Name: HASMUKH MERINO Page [phone] at 1837 All edits/amendments must be made on the electronic document DICTATION DATE: 04/04/191835 AIRCRAFT ENGINE MECHANIC: CALEB 04/04/191835 RPT#: [id number] DC DATE:04/04/19 STATUS: DIS IN [facility] [address] [place] [address] END OF REPORT
--- NOTE | 2019-04-06 09:43 | MORECARE ---
CASE MANAGEMENT DISCHARGE SUMMARY PATIENT: HASMUKH MERINO UNIT: [id number] ADM DATE: 04/03/19 AGE: 79 : 38 SEX: F ROOM/BED: D.2231 AUTHOR: LILLIAM,DOC PHYSICIAN: REFERRING PHYSICIAN: DL CARRERA DO DATE OF SERVICE: 04/06/19 Discharge Plan Patient Name: HASMUKH MERINO Facility: [facility]:[place] : 1940 Planned Disposition: Home Anticipated Discharge Date: 04/04/19 Discharge Date: 04/04/2019 Expected LOS: 1 Initial Reviewer: [email or web address] Initial Review Date: 04/03/2019 Generated: 04/06/19 10:43 am Comments DCP- Discharge Planning Updated by [email or web address]: Talia Murrieta on 04/04/19 5:[address] LATE ENTRY 1600 CM MET WITH THE PATIENT AT THE BEDSIDE. NELIDA , HER SISTER, WAS AT THE BEDSIDE. CM EXPLINED MY ROLE. REQUEST PERMISSION TO SPEAK W/ HER REGARDING DISCHARGE. CM ASK PERMISSION REGARDING HER SISTER'S PRESENCE. SHE GAVE PERMISSION FOR SISTER TO STAY DURING ASSESSMENT. SHE WILL BE RETURNING TO HER HOME. SHE HAS ONE STEP W/ RAILING TO ENTER HER HOME. PATIENT IS INDEPENDNT IN HER CARE. HER DAUGHTER, MAHESH, LIVES W/ HER. SHE STATES SHE DOES NOT REQUIRE ANY ASSISTANCE HER DAUGHTER HELPS IF NEEDED. HER BROTHER IN LAW IS PROVIDING TRANSPORTATION FOR HER AND HIS , NELIDA. SHE HAS NO ADDITIONAL DME NEEDS. SHE HAS A NEBULIZER, BSC AND WHEELED WALKER. SHE DOES NOT DESIRE ANY OUTSIDE SERVICES. PCP - DR CARRERA [facility]ARMACY- DR CARRERA SHE STATES DR ROJAS EXPLAINED "EVERYTHING VERY WELL". SHE HAD NO QUESTIONS. DENIED ANY NEEDS OR CONCERNS. SHE WAS ANXIOUS TO GET DRESSED. DCPIA - Discharge Planning Initial Assessment Updated by [id number]: Talia Murrieta on 04/04/19 6:21 pm * Is the patient Alert and Oriented? Yes * How many steps to enter\\exit or inside your home? 1W/ RAIL * PCP DR CARRERA * Pharmacy [facility] * Preadmission Environment Home with Family * ADLs Independent * Equipment Bedside Commode Nebulizer Rolling Walker * Other Equipment DENIES ANY ADDITIONAL DME * List name and contact numbers for known caregivers / representatives who currently or will assist patient after discharge: MAHESH MERINO- DTR- [phone] * Verbal permission to speak to the caregivers and representatives has been obtained from the patient. Yes * Community resources currently utilized None * Please name any agencies selected above. N/A * Additional services required to return to the preadmission environment? No * Can the patient safely return to the preadmission environment? Yes * Has this patient been hospitalized within the prior 30 days at any hospital? No Last DP export: 04/04/19 5:37 p Patient Name: HASMUKH MERINO Page [id number] at 0943 All edits/amendments must be made on the electronic document DICTATION DATE: 04/06/19942 CHIEF ANALYTICS OFFICER: CALEB 04/06/19942 RPT#: [id number] DC DATE:04/04/19 STATUS: DIS IN [facility] [address] [place] [address] END OF REPORT
[2019-04-08 20:06] LABS: OVA + PARASITE EXAM Final report (())
== END 2019-04-04 17:34 | disposition home or self-care (01) | DRG 372 ==
LOC: D.SDCHOLD 15:09 → D.MS 15:22
PROVIDERS: ADMIT Family Medicine; ATTEND Family Medicine
DX: A04.72 Enterocolitis due to Clostridium difficile, not specified as recurrent (principal); F17.203 Nicotine dependence unspecified, with withdrawal; J44.9 Chronic obstructive pulmonary disease, unspecified; I10 Essential (primary) hypertension

== ENCOUNTER 2020-12-07 18:06 | Observation (INO) | payer MEDICARE, BC ==
[~2020-12-07] VITALS: Ht 154.9 cm; Wt 49.0 kg
[~2020-12-07 18:06] MED LIST changes: +DALIRESP250 MCG PO; +FLORAJEN3 CAPS460 MG PO; +FLUTICASONE PRO16 GM NASAL; +MUCINEX DM ER1 EAC1 PO; +PHENERGAN25 M1 PO; +SINGULAIR10 MG PO; +ZOFRAN4 MG PO
--- NOTE | 2020-12-07 19:19 | NUR ---
PT DIRECT ADMIT FROM DR OFFICE. PT IN ROOM, DAUGHTER AT BEDSIDE, 20 GAUGE SALINE LOCK STARTED TO LEFT FOREARM AT THIS TIME, CL IN REACH, SR UP X 2.
[2020-12-07 19:51] VITALS: BMI 20.4
[2020-12-07 20:28] VITALS: BP 115/54
[2020-12-07 23:05] LABS: EOSINOPHILS 2.5 % (0-7); HEMATOCRIT 40.6 % (36.0-48.0); HEMOGLOBIN 13.2 g/dL (12-16); LYMPHOCYTES 31.7 % (15-50); MCH 28.4 pg (26.0-34.0); MCHC 32.5 g/dL (31.0-37.0); MCV 87.4 fL (80.0-100.0); MEAN PLATELET VOLUME 7.9 fL (7.4-10.4); MONOCYTES 13.2 % (2-11); NEUTROPHILS 51.6 % (40-80); PLATELET COUNT 267 10x3/uL (130-400); RBC 4.65 10x6/uL (4.00-5.40); RDW 13.7 % (11.5-14.5); WBC 7.8 10x3/uL (4.8-10.8)
[2020-12-07 23:15] LABS: INR 1.06 (0.85-1.17); PROTIME 12.8 SECONDS (11.6-15.0)
[2020-12-07 23:17] LABS: D-DIMER-QUANTITATIVE 0.68 ug/mLFEU (0.20-0.54)
[2020-12-07 23:19] VITALS: BP 111/60
[2020-12-07 23:32] LABS: ALBUMIN 3.4 g/dL (3.4-5.0); ALKALINE PHOSPHATASE 62 U/L (30-120); ALT (SGPT) 16 U/L (10-68); AMYLASE - SERUM 75 U/L (25-115); BILIRUBIN - TOTAL 0.33 mg/dL (0.2-1.3); CALC OSMOLALITY 276 mosm/kg (275-300); CALCIUM 8.4 mg/dL (8.5-10.1); CARBON DIOXIDE 25.3 mmol/L (21.0-32.0); CHLORIDE - SERUM 104 mmol/L (98-107); CKMB 0.8 U/L (0.0-3.6); CREATINE KINASE 54 UL (21-215); CREATININE - SERUM 0.8 mg/dL (0.6-1.3); GLUCOSE 95 mg/dL (74-106); LIPASE 257 U/L (73-393); MAGNESIUM - SERUM 1.9 mg/dL (1.8-2.4); PROTEIN - SERUM 6.4 g/dL (6.4-8.2); SODIUM 139 mmol/L (136-145); UREA NITROGEN 11 mg/dL (7-18); eGFR NON AFRICAN AMERICAN 73 mL/min (90-120)
[2020-12-08 04:36] VITALS: BP 161/77
[2020-12-08 06:29] LABS: BASOPHILS 0.4 % (0-2); EOSINOPHILS 3.3 % (0-7); HEMATOCRIT 41.9 % (36.0-48.0); HEMOGLOBIN 13.6 g/dL (12-16); LYMPHOCYTES 31.9 % (15-50); MCH 28.5 pg (26.0-34.0); MCHC 32.4 g/dL (31.0-37.0); MEAN PLATELET VOLUME 8.2 fL (7.4-10.4); MONOCYTES 13.1 % (2-11); NEUTROPHILS 51.3 % (40-80); PLATELET COUNT 268 10x3/uL (130-400); RBC 4.76 10x6/uL (4.00-5.40); RDW 13.5 % (11.5-14.5); WBC 6.8 10x3/uL (4.8-10.8)
--- NOTE | 2020-12-08 06:50 | NUR ---
PATIENT RESTING COMFORTABLY IN BED. NO CURRENT PAIN OR DISTRESS VOICED. RESP EVEN AND UNLABORED. IV PATENT TO LEFT FOREARM.
[2020-12-08 07:01] LABS: ALBUMIN 3.4 g/dL (3.4-5.0); ALKALINE PHOSPHATASE 60 U/L (30-120); ALT (SGPT) 13 U/L (10-68); BILIRUBIN - TOTAL 0.43 mg/dL (0.2-1.3); CALC OSMOLALITY 279 mosm/kg (275-300); CALCIUM 8.3 mg/dL (8.5-10.1); CHLORIDE - SERUM 107 mmol/L (98-107); CREATININE - SERUM 0.7 mg/dL (0.6-1.3); GLUCOSE 102 mg/dL (74-106); POTASSIUM - SERUM 3.7 mmol/L (3.5-5.1); PROTEIN - SERUM 6.4 g/dL (6.4-8.2); SODIUM 141 mmol/L (136-145); UREA NITROGEN 10 mg/dL (7-18); eGFR NON AFRICAN AMERICAN 85 mL/min (90-120)
[2020-12-08 07:30] VITALS: BP 114/68
--- NOTE | 2020-12-08 09:00 | NUR ---
PATIENT AWAKE AND ALERT. NO CURRENT PAIN OR DISTRESS NOTED. MEDS TAKEN WITH NO ISSUE. LUNG SOUNDS CTA. RESP EVEN AND UNLABORED. ON ROOM AIR SATS 99. BOWEL SOUNDS ACTIVE. HEART SOUNDS REGULAR RATE AND RYTHYM. ABLE TO MOVE AROUND ROOM WITHOUT ASSIST PER PT.
--- NOTE | 2020-12-08 09:31 | NUR ---
REHAB PRESCREENING Rehab referral received and chart reviewed. This patient has both PT and OT evaluations ordered and a pending GI consult. Rehab will continue to follow for admission criteria. Thank you for this referral! Ira Swain, GRADES 9 12 TUTOR Rehab PD
[2020-12-08 11:05] VITALS: BP 115/74
[2020-12-08 11:46] VITALS: Ht 154.9 cm; Wt 49.0 kg
== END 2020-12-08 15:41 | disposition home or self-care (01) ==
LOC: D.M2 18:06 → OBSVTIME 19:00 → D.M2 12-08 15:41
PROVIDERS: ADMIT Family Medicine; ATTEND Family Medicine
DX: R10.9 Unspecified abdominal pain (principal); R53.1 Weakness; R63.4 Abnormal weight loss; F17.203 Nicotine dependence unspecified, with withdrawal; J44.9 Chronic obstructive pulmonary disease, unspecified; I10 Essential (primary) hypertension; M19.90 Unspecified osteoarthritis, unspecified site; K52.9 Noninfective gastroenteritis and colitis, unspecified; E43 Unspecified severe protein-calorie malnutrition